=== PATIENT | male | born 1970 | race Caucasian/White ===

== ENCOUNTER 2018-02-25 14:03 | Day surgery (SDC) | payer BC ==
[~2018-02-25] VITALS: Ht 167.6 cm; Wt 83.7 kg
[~2018-02-25 14:03] MED LIST: CELEBREX 200MG200 MG PO; CEPHALEXIN500 M1 PO; CLARITIN 1010 MG/TAB PO; CRESTOR 10MG10 MG PO; FLEXERIL 1010 MG/TAB PO; LIPITOR 10MG10 MG PO; LORATADINE10 MG PO; NASONEX SPRAY; NASONEX SPRAY17 GM NS; NEXIUM40 MG PO; PERCOCET 325 MG1 TA2 PO; PRIL40 PO; SINGULAIR 110 MG/TAB PO; ZOFRAN 4MG T4 MG/TAB PO
[2018-02-25] MEDS ORDERED: MASON NATURAL1000 M1 PO (14:27)
[2018-02-25] MEDS ORDERED: BENADRYL25 M2 PO (14:28)
[2018-02-25] MEDS ORDERED: MULTI VITAMINS1 TAB PO (14:29)
[2018-02-25] MEDS ORDERED: IRON PO (14:29)
[2018-02-25] MEDS ORDERED: MAG-OX 400400 MG/TAB PO (14:30)
[2018-02-25] MEDS ORDERED: NASACORT OTC NS (14:30)
[2018-02-25] MEDS ORDERED: TYLENOL W/COD1 UDTAB PO (14:31)
[2018-02-25] MEDS ORDERED: ANTACID200 MG PO (14:31)
[2018-02-25 14:32] VITALS: BP 128/83; PULSE 94; TEMP 96.9
[2018-02-25 15:35] VITALS: BP 127/83; PULSE 69; TEMP 96.9
[2018-02-25 15:50] VITALS: BP 123/84; PULSE 68
[2018-02-25 16:05] VITALS: BP 117/75; PULSE 66
[2018-02-25 16:20] VITALS: BP 123/83; PULSE 68
[2018-02-25 16:35] VITALS: BP 121/79; PULSE 69
== END 2018-02-25 16:50 | disposition home or self-care (01) ==
LOC: SDCO 14:03
DX: K21.9 Gastro-esophageal reflux disease without esophagitis (principal); K29.30 Chronic superficial gastritis without bleeding; R13.10 Dysphagia, unspecified; Z79.899 Other long term (current) drug therapy; R09.81 Nasal congestion; J45.909 Unspecified asthma, uncomplicated; Z98.52 Vasectomy status; K22.70 Barrett's esophagus without dysplasia
CPT/HCPCS: J2250; J3010; J7030

== ENCOUNTER 2018-07-13 15:57 | Emergency (ER) | payer BC ==
[~2018-07-13] VITALS: Ht 167.6 cm; Wt 81.8 kg
[~2018-07-13 15:57] MED LIST changes: +ANTACID200 MG PO; +BENADRYL25 M2 PO; +IRON PO; +MAG-OX 400400 MG/TAB PO; +MASON NATURAL1000 M1 PO; +MULTI VITAMINS1 TAB PO; +NASACORT OTC NS; +TYLENOL W/COD1 UDTAB PO
[2018-07-13 16:03] VITALS: BP 123/77; TEMP 97.9
[2018-07-13] MEDS ORDERED: ZOFRAN ODT4 MG PO (16:16)
[2018-07-13] MEDS ORDERED: NORCO 325 MG-51 TAB PO (16:17)
[2018-07-13 16:32] LABS: BASO % 0.2 % (0.0-2.0); EOS % 0.2 % (0-4.0); GRAN # 4.3 (1.4-6.5); HEMATOCRIT 49.4 % (42.0-52.0); HEMOGLOBIN 17.3 g/dl (13.5-18.0); LYMPH # 0.3 (1.2-3.4); LYMPH % 4.9 % (20.0-51.0); MEAN CELL VOLUME 87 fl (80.0-100.0); MEAN CORPUSCULAR HEMOGLOBIN 31 pg (27.0-31.0); MEAN CORPUSCULAR HGB CONC 35 g/dl (33.0-37.0); MEAN PLATELET VOLUME 10.2 fl (7.4-10.4); MONO # 0.7 (0.1-0.6); MONO % 12.3 % (1.7-9.3); PLATELET COUNT 187 K/mm3 (130-400); RED BLOOD COUNT 5.66 M/mm3 (4.20-5.60); REDCELL DISTRIBUTION WIDTH-CV 13.5 % (11.5-14.5)
[2018-07-13 16:44] LABS: ALBUMIN 4.6 gm/dL (3.5-5.0); BILIRUBIN,TOTAL 1.1 mg/dL (0.0-1.0); C-REACTIVE PROTEIN 8.7 mg/dL (0.0-0.9); CALCIUM 9.4 mg/dL (8.4-10.2); CREATININE, serum 0.98 mg/dL (0.66-1.25); TOTAL PROTEIN 7.9 gm/dL (6.4-8.2)
[2018-07-13] MEDS ORDERED: ZOFRAN 4MG T4 MG/TAB PO (17:39)
[2018-07-13 18:25] VITALS: PULSE 80
== END 2018-07-13 18:27 | disposition home or self-care (01) ==
LOC: COL.ER 15:57
PROVIDERS: Emergency Medicine
DX: E86.9 Volume depletion, unspecified (principal); R11.10 Vomiting, unspecified; R19.7 Diarrhea, unspecified; E78.00 Pure hypercholesterolemia, unspecified
CPT/HCPCS: J1885; J2405; J2550; J7030